=== PATIENT | female | born 1990 | race Caucasian/White ===

== ENCOUNTER 2017-12-27 19:59 | Emergency (ER) | payer OTHER ==
[2017-12-27 20:40] VITALS: BP 120/71; PULSE 81; TEMP 98.3; BMI 25.7
--- NOTE | 2017-12-27 21:00 | PDOC ---
Attending Attestation - HPI HPI: 12/27/17 22:32 The patient is a 27 year old female with a significant PMH of GERD presenting with two day history of lower abdominal pain. Patient describes the lower abdominal pain as sharp with no alleviating or exacerbating factors. Patient had an ultrasound 2 months ago that showed multiple cysts in the ovaries. Patient follows with her PCP for history of dysmenorrhea. Last menstrual period was two weeks ago. The patient denies chest pain, shortness of breath, headache and dizziness. Denies fever, chills, nausea, vomit, diarrhea and constipation. Denies dysuria, frequency, urgency and hematuria. Allergies: NKA Past surgical history: None reported. Social history: Tobacco use. No reported alcohol, drug use. <Dilia Godoy - Last Filed: 12/27/17 22:32> - Resident Resident Name: Rowdy Zazueta - ED Attending Attestation I have performed the following: I have examined & evaluated the patient, The case was reviewed & discussed with the resident, I agree w/resident's findings & plan, Exceptions are as noted - Physicial Exam PE: GENERAL: Awake, alert, and fully oriented, in no acute distress HEAD: No signs of trauma EYES: PERRLA, EOMI, sclera anicteric, conjunctiva clear ENT: Auricles normal inspection, hearing grossly normal, nares patent, oropharynx clear without exudates. Moist mucosa NECK: Normal ROM, supple, no lymphadenopathy, JVD, or masses LUNGS: Breath sounds equal, clear to auscultation bilaterally. No wheezes, and no crackles HEART: Regular rate and rhythm, normal S1 and S2, no murmurs, rubs or gallops ABDOMEN: Soft, +BLQ tenderness, normoactive bowel sounds. +Guarding, no rebound. No masses. No CVAT. EXTREMITIES: Normal range of motion, no edema. No clubbing or cyanosis. No cords, erythema, or tenderness NEUROLOGICAL: Cranial nerves II through XII grossly intact. Normal speech, normal gait SKIN: Warm, Dry, normal turgor, no rashes or lesions noted. - Medical Decision Making Pt with pelvic pain, history of multiple ovarian cysts. She is currently mid- cycle, although her menstrual periods tend to be irregular. Suspect ruptured ovarian cyst, however, will obtain sono to r/o torsion. <Ce Mccarty - Last Filed: 12/28/17 00:31>
--- NOTE | 2017-12-27 21:09 | PDOC ---
Attending Attestation - Resident Resident Name: Rowdy Zazueta - ED Attending Attestation I have performed the following: I have examined & evaluated the patient, The case was reviewed & discussed with the resident, I agree w/resident's findings & plan, Exceptions are as noted
--- NOTE | 2017-12-27 21:19 | PDOC ---
History of Present Illness - History of Present Illness Initial Comments: 12/27/17 21:09 27 yo F with h/o GERD who p/w lower abdominal pain. Patient reports severe, spasmodic, sharp lower abdominal pain x 2 days with no identifiable triggers or alleviators. Worse with movement. Denies otc symptom management. Patient with h/ o multiple cyst on BL ovaries seen on ultrasound 2 months ago. Has h/o dysmennrohea and been evaluated by PMD for complaints, of menstrual irregularities, lower back pain, and lower abdominal pain in the past with multiple negative UA's. Per patient she was advised to d/c all medication including OCP, PPI, and NSAID/Naproxen in effort to identify source of chronic lower abdominal pain. LMP 2 weeks ago. Patient denies N/V, F,C, CP, SOB, urinary complaints, abdominal pain, diarrhea, constipation, lightheadedness, weakness, sensory changes. PMHx: as noted above. Denies h/o abdominal surgery. ROS: as noted SHx: IVDA, tobacco use. Allergies: NKDA <Rowdy Zazueta - Last Filed: 12/28/17 00:36> <Ce Mccarty - Last Filed: 12/28/17 01:44> - General Chief Complaint: Pain Stated Complaint: ABD PAIN Time Seen by Provider: 12/27/17 20:47 Past History - Suicide/Smoking/Psychosocial Hx Smoking History: Never smoked Have you smoked in the past 12 months: No Information on smoking cessation initiated: No Hx Alcohol Use: No Drug/Substance Use Hx: No <Rowdy Zazueta - Last Filed: 12/28/17 00:36> <Ce Mccarty - Last Filed: 12/28/17 01:44> - Past Medical History Allergies/Adverse Reactions: Allergies Allergy/AdvReac Type Severity Reaction Status Date / Time No Known Allergies Allergy Verified 12/27/17 21:33 Home Medications: Ambulatory Orders NK [No Known Home Medication] 12/27/17 *Physical Exam - Vital Signs Last Vital Signs Temp Pulse Resp BP Pulse Ox 98.3 F 81 18 120/71 100 12/27/17 20:37 12/27/17 20:37 12/27/17 20:37 12/27/17 20:37 12/27/17 20:37 <Rowdy Zazueta - Last Filed: 12/28/17 00:36> - Vital Signs Last Vital Signs Temp Pulse Resp BP Pulse Ox 98.3 F 81 18 120/71 100 12/27/17 20:37 12/27/17 20:37 12/27/17 20:37 12/27/17 20:37 12/27/17 20:37 <Ce Mccarty - Last Filed: 12/28/17 01:44> ED Treatment Course - LABORATORY CBC & Chemistry Diagram: 12/27/17 21:40 12/27/17 21:40 <Rowdy Zazueta - Last Filed: 12/28/17 00:36> - LABORATORY CBC & Chemistry Diagram: 12/27/17 21:40 12/27/17 21:40 - ADDITIONAL ORDERS Additional order review: Laboratory Results 12/27/17 12/27/17 21:40 21:40 Sodium 139 Potassium 3.8 Chloride 105 Carbon Dioxide 25 Anion Gap 9 BUN 7 Creatinine 0.7 Creat Clearance w eGFR > 60 Random Glucose 89 Calcium 8.8 Total Bilirubin 0.3 AST 32 ALT 39 Alkaline Phosphatase 123 H Total Protein 7.7 Albumin 4.0 Urine Color Straw Urine Appearance Clear Urine pH 8.0 Ur Specific [place] 1.006 Urine Protein Negative Urine Glucose (UA) Negative Urine Ketones Trace H Urine Blood 1+ H Urine Nitrite Negative Urine Bilirubin Negative Urine Urobilinogen Negative Ur Leukocyte Esterase Negative Urine WBC (Auto) None Urine RBC (Auto) 1 Ur Epithelial Cells Rare Urine Mucus Rare Urine HCG, Qual Negative 12/27/17 21:40 RBC 4.65 MCV 89.7 MCHC 33.6 RDW 12.6 MPV 9.2 Neutrophils % 79.3 Lymphocytes % 13.9 Monocytes % 5.9 Eosinophils % 0.7 Basophils % 0.2 - Medications Given in the ED: ED Medications Discontinued Medications Generic Name Dose Route Start Last Admin Trade Name Freq PRN Reason Stop Dose Admin Acetaminophen 650 mg 12/27/17 22:00 12/27/17 21:38 Tylenol - PO 12/27/17 22:01 650 mg ONCE ONE Administration Ketorolac Tromethamine 30 mg 12/27/17 22:28 12/27/17 22:47 Toradol Injection - IVPUSH 12/27/17 22:29 30 mg ONCE ONE Administration <Ce Mccarty - Last Filed: 12/28/17 01:44> Medical Decision Making - Medical Decision Making 12/27/17 21:19 27 yo F with h/o GERD who p/w lower abdominal pain. VSS, AF, A&Ox3. + Suprapubic and lower abdominal ttp. R/o ovarian torsion vs. cystic rupture. Will consider cystitis, appendicitis, diverticulitis, colitis. Suspect sx. related to DUB/PCOS. ED Course: CBC,CMP UA Tylenol, NS 12/27/17 23:12 CBC,CMP: Unremarkable UA: Neg 12/28/17 00:36 Patient signed out to night team. Pending transvaginal U/S. <Rowdy Zazueta - Last Filed: 12/28/17 00:36> - Medical Decision Making 12/28/17 01:44 Sono results reviewed with patient. No acute findings. Vascular flow to B/L ovaries intact. She reports improvement in her symptoms. Stable for DC home. <Ce Mccarty - Last Filed: 12/28/17 01:44> *DC/Admit/Observation/Transfer - Attestations Physician Attestion: 12/27/17 21:24 I attest to the information provided in this note. <Rowdy Zazueta - Last Filed: 12/28/17 00:36> - Discharge Dispostion Decision to Admit order: No <Ce Mccarty - Last Filed: 12/28/17 01:44> Diagnosis at time of Disposition: Ovarian cyst Qualifiers: Laterality: bilateral Qualified Code(s): N83.201 - Unspecified ovarian cyst, right side; N83.202 - Unspecified ovarian cyst, left side - Discharge Dispostion Disposition: HOME Condition at time of disposition: Stable - Referrals Referrals: ON STAFF,NOT [Primary Care Provider] - - Patient Instructions Additional Instructions: Please return to the emergency department with any new or worsening symptoms or concerns. Please follow up with your primary care physician within 72 hours.
[2017-12-27] MEDS ORDERED: ACETAMINOPHEN 325 MG TABLET (FP) PO ONE (22:00)
[2017-12-27 22:09] LABS: BASO % 0.2 % (0-2.0); EOS % 0.7 % (0-4.5); HEMATOCRIT 41.7 % (32.4-45.2); LYMPH % 13.9 % (8-40); MCH 30.1 pg (25.7-33.7); MCHC 33.6 g/dl (32.0-36.0); MEAN CELL VOLUME 89.7 fl (80-96); MEAN PLT VOLUME 9.2 fl (7.5-11.1); MONO % 5.9 % (3.8-10.2); NEUT % 79.3 % (42.8-82.8); PLATELET COUNT 185 K/MM3 (134-434); RBC 4.65 M/mm3 (3.60-5.2); RDW 12.6 % (11.6-15.6); WHITE BLOOD COUNT 10.3 K/mm3 (4.0-10.0)
[2017-12-27 22:13] LABS: ANION GAP 9 (8-16); BILIRUBIN,TOTAL 0.3 mg/dL (0.2-1.0); BLOOD UREA NITROGEN 7 mg/dL (7-18); CALCIUM 8.8 mg/dL (8.5-10.1); CHLORIDE 105 mmol/L (98-107); CO2 25 mmol/L (21-32); CREATININE 0.7 mg/dL (0.55-1.02); GLUCOSE,RANDOM 89 mg/dL (74-106); POTASSIUM 3.8 mmol/L (3.5-5.1); SGOT/AST 32 U/L (15-37); SGPT/ALT 39 U/L (12-78); SODIUM 139 mmol/L (136-145); TOT PROT 7.7 g/dl (6.4-8.2)
[2017-12-27 22:14] LABS: ALK PHOS 123 U/L (45-117)
[2017-12-27 22:15] LABS: HCG,QUALITATIVE URINE NEGATIVE
[2017-12-27 22:21] LABS: URINE APPEARANCE CLEAR; URINE BILIRUBIN NEGATIVE (<2.0 mg/dL); URINE COLOR STRAW; URINE GLUCOSE (UA) NEGATIVE (NEGATIVE); URINE KETONE TRACE (NEGATIVE); URINE LEUK ESTERASE NEGATIVE (NEGATIVE); URINE NITRITE NEGATIVE (NEGATIVE); URINE PROTEIN NEGATIVE (NEGATIVE); URINE UROBILINOGEN NEGATIVE mg/dL (0.2-1.0)
[2017-12-27] MEDS ORDERED: KETOROLAC TROMETHAMINE 30 MG/1 ML VIAL IVPUSH ONE (22:28)
[2017-12-27 22:31] LABS: EPI CELLS RARE /HPF (FEW); URINE MUCUS RARE
[2017-12-27] MEDS ORDERED: KETOROLAC TROMETHAMINE 30 MG/1 ML VIAL ONE (22:38)
== END 2017-12-28 01:47 | disposition home or self-care (01) ==
LOC: JER 19:59
PROC: 3E0333Z Introduction of Anti-inflammatory into Peripheral Vein, Percutaneous Approach (ICD-10-PCS; principal; 2017-12-27)
DX: N83.201 Unspecified ovarian cyst, right side (principal); N83.202 Unspecified ovarian cyst, left side
CPT/HCPCS: 36415; 76830-TC; 80053; 81003; 81015; 84703; 85025; 87086; 96374; 99283-25